=== PATIENT | male | born 1960 | race African-American/Black ===

== ENCOUNTER 2017-01-12 11:17 | Emergency (ER) | payer OTHER ==
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
== END 2017-01-12 13:40 | disposition home or self-care (01) ==
LOC: CED 11:17 → CFTX 11:17
DX: S39.012A Strain of muscle, fascia and tendon of lower back, initial encounter (principal); Z98.890 Other specified postprocedural states; V43.52XA Car driver injured in collision with other type car in traffic accident, initial encounter; Y92.410 Unspecified street and highway as the place of occurrence of the external cause
CPT/HCPCS: 72100; 99283